=== PATIENT | male | born 1950 | race Asian ===

== ENCOUNTER 2024-12-01 08:56 | Outpatient (CLI) | payer MEDICARE | END 2024-12-01 08:57 | disposition home or self-care (01) | LOC: CSHSLEEP 08:56 | PROVIDERS: ATTEND Family Medicine | DX: G47.33 Obstructive sleep apnea (adult) (pediatric) (principal); R53.83 Other fatigue; I10 Essential (primary) hypertension | CPT/HCPCS: 95811 ==